=== PATIENT | female | born 1980 | race Caucasian/White ===

== ENCOUNTER 2016-08-10 21:52 | Emergency (ER) | payer OTHER ==
[~2016-08-10] VITALS: Ht 170.2 cm; Wt 72.6 kg
[2016-08-10 22:05] VITALS: BP 120/66
--- NOTE | 2016-08-10 22:17 | NUR ---
BIB WHEELCHAIR TO ER BED 8
--- NOTE | 2016-08-10 22:17 | NUR ---
35 Y/O F BIB PARTNER W/C/O R ABD PAIN/ LOWER BACK PAIN AND NAUSEA X 1 DAY. PT DENIES ANY FEVER, OR CHILLS. ER MADE AWARE.
[2016-08-10 22:48] VITALS: BP 127/82
--- NOTE | 2016-08-10 22:48 | NUR ---
PT BECAME AGITATED AFTER HEARING A PAGE FOR AN ER DOCTOR TO GO TO LABOR AND DELIVERY. PT GOT UP FROM BED AND BEGIN SPEAKING INAPROPRIATE AND STATED SHE WISHED TO LEAVE THE HOSPITAL REFUSING ALL MEDICAL TREATMENT. 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 ER MD CALLED AT [facility] AND EXPLAINED TO PATIENT THAT URINE TEST WAS NEGATIVE BUT BLOOD TEST COULD BE ORDER TO CHECK FOR BUT PT REFUSED. PT REQUESTED TO SIGNED AMA. PARTNER WAS ADVICE TO F/U WITH PMD FOR PSYCH EVALUATION. PT DENIED TO HAVE ANY THOUGHTS OF HURTING HERSELF OR OTHERS. AMA FORM PROVIDED FOR PT.
--- NOTE | 2016-08-10 22:48 | NUR ---
Patient does not wish to proceed with medical care recommended by DR DAI. Patient given information related to possible complications, which could occur as a result of leaving hospital at this time. Patient verbalizes understanding of risks involved leaving against medical advice. Patient has signed AMA form.
== END 2016-08-10 22:48 | disposition left against medical advice (07) ==
LOC: MED 21:52
DX: R10.30 Lower abdominal pain, unspecified (principal); Z88.5 Allergy status to narcotic agent; Z88.2 Allergy status to sulfonamides; Z88.1 Allergy status to other antibiotic agents
CPT/HCPCS: 81002; 81025; 99283

== ENCOUNTER 2017-12-18 00:52 | Emergency (ER) | payer OTHER ==
[~2017-12-18] VITALS: Ht 170.2 cm; Wt 77.1 kg
[2017-12-18 01:02] VITALS: BP 102/67
--- NOTE | 2017-12-18 01:02 | NUR ---
37/F BIBA FROM [employer]. PER EMS, PT C/O INCREASING VAGINAL BLEEDING WHILE WHILE WORKING AT [employer]. PT REPORTS DIZZINESS, NAUSEA. PT DENIES CP, SOB, V/D, DYSURIA. PT REPORTS BEING , . PT WAS GIVEN 300ML NS BOLUS AND 4MG ZOFRAN IVP VIA LAC 18G. PT DENIES MED HX, RX. PLACED ON [employer]. ER MD MADE AWARE.
[2017-12-18 01:22] LABS: BASOPHILS % (AUTO) 0.2 % (0.0-2.0); EOSINOPHILS # (AUTO) 0.1 K/uL (0-0.4); EOSINOPHILS % (AUTO) 1.7 % (0.0-4.0); HEMOGLOBIN 13.1 g/dL (12.0-16.0); LYMPHOCYTES # (AUTO) 1.9 K/uL (2.5-16.5); MEAN CORPUSCULAR HEMOGLOBIN 30 pg (27-31); MEAN CORPUSCULAR HGB CONC 33 g/dL (33-37); MEAN CORPUSCULAR VOLUME 91.3 fL (80-94); MONOCYTES # (AUTO) 0.6 K/uL (0.8-1.0); MONOCYTES % (AUTO) 7.3 % (1.7-9.3); NEUTROPHILS % (AUTO) 68.8 % (42.2-75.2); PLATELET COUNT (AUTO) 200 K/uL (140-450); RED BLOOD CELL COUNT(AUTO) 4.37 MIL/uL (4.20-5.40); RED CELL DISTRIBUTION WIDTH 13.1 % (11.6-13.7); WHITE BLOOD COUNT (AUTO) 8.7 K/uL (4.8-10.8)
--- NOTE | 2017-12-18 01:25 | NUR ---
DR. MCCURDY AND ROSENDA RN AT BEDSIDE FOR PELVIC EXAM
[2017-12-18] MEDS ORDERED: NACL 0.9% 1,000 ML IV ONE (01:30)
--- NOTE | 2017-12-18 01:30 | NUR ---
WAS NOTIFIED BY [employer] TECH THAT US TECH IS COMING FROM [facility], ETA 30 MINS. MARTHA WATKINS MADE AWARE.
[2017-12-18] MEDS ORDERED: METOCLOPRAMIDE 10 MG/2 ML INJ VIAL IVP ONE (02:55)
[2017-12-18 03:53] VITALS: BP 110/60
--- NOTE | 2017-12-18 03:54 | NUR ---
Patient discharged with v/s stable. Written and verbal after care instructions given and explained. Patient verbalized understanding. Ambulatory with steady gait. All questions addressed prior to discharge. Advised to follow up with PMD.
== END 2017-12-18 03:50 | disposition home or self-care (01) ==
LOC: MED 00:52
DX: O03.9 Complete or unspecified spontaneous abortion without complication (principal); Z3A.10 10 weeks gestation of pregnancy; Z88.5 Allergy status to narcotic agent; Z88.1 Allergy status to other antibiotic agents
CPT/HCPCS: 36415; 76817; 84702; 85025; 86900; 86901; 96374; 99285; J2765; Q0092